=== PATIENT | female | born 1990 ===

== ENCOUNTER 2019-05-08 20:58 | Emergency (ER) | payer BC ==
[2019-05-08 21:26] VITALS: BP 132/70
[2019-05-08] MEDS ORDERED: Nitrofurantoin Macrocrystals* 50 MG CAP PO ONE (21:51)
--- NOTE | 2019-05-08 21:53 | UC ---
Complaint Female HPI - HPI Summary HPI Summary: 28-year-old woman comes in with a chief complaint of dysuria for the last couple of days. She feels like she has to urinate more. Presley when she urinates. Denies any abdominal pain or flank pain no fevers or chills. Feels well otherwise. Denies any abnormal vaginal discharge or any concern of STI or . - History Of Current Complaint Chief Complaint: UCGU Stated Complaint: UTI Time Seen by Provider: 05/08/19 21:15 Hx Last Menstrual Period: 2 WEEKS AGO Pain Intensity: 3 - Allergies/Home Medications Allergies/Adverse Reactions: Allergies Allergy/AdvReac Type Severity Reaction Status Date / Time cephalexin Allergy MIGRAINE Verified 05/08/19 21:27 doxycycline Allergy FACIAL Verified 05/08/19 21:27 SWELLING, RASH Home Medications: Home Medications Ibuprofen TAB* [Advil TAB*] 200 mg PO ONCE PRN 05/08/19 [History Confirmed 05/08] Iud* 05/08/19 [History] PMH/Surg Hx/FS Hx/Imm Hx Previously Healthy: Yes - Surgical History Surgical History: Yes Surgery Procedure, Year, and Place: 2 KNEE SURGERIES (ACL REPAIR) - Family History Known Family History: Positive: Non-Contributory - Social History Alcohol Use: Occasionally Substance Use Type: None Smoking Status (MU): Never Smoked Tobacco Review of Systems All Other Systems Reviewed And Are Negative: Yes Constitutional: Positive: Negative Skin: Positive: Negative Eyes: Positive: Negative ENT: Positive: Negative Respiratory: Positive: Negative Cardiovascular: Positive: Negative Gastrointestinal: Positive: Negative Genitourinary: Positive: Dysuria, Frequency, Urgency Motor: Positive: Negative Neurovascular: Positive: Negative Musculoskeletal: Positive: Negative Neurological: Positive: Negative Psychological: Positive: Negative Is Patient Immunocompromised?: No Physical Exam Triage Information Reviewed: Yes Appearance: Well-Appearing, No Pain Distress, Well-Nourished Vital Signs: Initial Vital Signs Temp 98.4 F 05/08/19 21:21 Pulse 66 05/08/19 21:21 Resp 16 05/08/19 21:21 BP 132/70 05/08/19 21:21 Pulse Ox 100 05/08/19 21:21 Vital Signs Reviewed: Yes Eye Exam: Normal Eyes: Positive: Conjunctiva Clear Neck: Positive: Supple Respiratory: Positive: Lungs clear, Normal breath sounds, No respiratory distress Cardiovascular: Positive: RRR Abdomen Description: Positive: Nontender, Soft. Negative: CVA Tenderness (R), CVA Tenderness (L) Bowel Sounds: Positive: Present Musculoskeletal: Positive: Strength Intact, ROM Intact Neurological: Positive: Alert, Muscle Tone Normal Psychological: Positive: Age Appropriate Behavior Skin Exam: Normal Complaint Female Dx - Differential Dx/Diagnosis Provider Diagnosis: UTI (urinary tract infection) Discharge - Sign-Out/Discharge Documenting (check all that apply): Patient Departure All imaging exams completed and their final reports reviewed: No Studies - Discharge Plan Condition: Stable Disposition: HOME Prescriptions: Nitrofurantoin Monohyd/M-Cryst [Macrobid 100 mg Capsule] 100 mg PO BID #12 cap Patient Education Materials: Urinary Tract Infection in Women (ED) Referrals: [facility] [place] [facility]ERR[facility] [Outside] Additional Instructions: FOLLOW UP WITH YOUR DOCTOR IF NOT COMPLETELY IMPROVED. GET RECHECKED SOONER IF YOUR CONDITION WORSENS OR ANY QUESTIONS OR CONCERNS. - Billing Disposition and Condition Condition: STABLE Disposition: Home
--- NOTE | 2019-05-10 19:55 | UC ---
- Progress Note Progress Note: call patient and assure symptoms have resolved---stop antibiotic as no bacterial grow in patient urine culture---if symptoms are persistent assure patient has follow up care planned Course/Dx - Diagnoses Provider Diagnoses: UTI (urinary tract infection) Discharge - Sign-Out/Discharge Documenting (check all that apply): Post-Discharge Follow Up All imaging exams completed and their final reports reviewed: No Studies - Discharge Plan Condition: Stable Disposition: HOME Prescriptions: Nitrofurantoin Monohyd/M-Cryst [Macrobid 100 mg Capsule] 100 mg PO BID #12 cap Patient Education Materials: Urinary Tract Infection in Women (ED) Referrals: [facility] [place] [facility] [Outside] Additional Instructions: FOLLOW UP WITH YOUR DOCTOR IF NOT COMPLETELY IMPROVED. GET RECHECKED SOONER IF YOUR CONDITION WORSENS OR ANY QUESTIONS OR CONCERNS. - Billing Disposition and Condition Condition: STABLE Disposition: Home
== END 2019-05-08 22:09 | disposition home or self-care (01) ==
LOC: UCEAST 20:58
DX: N39.0 Urinary tract infection, site not specified (principal)
CPT/HCPCS: 81002; 87086; 99202; A9270-GY; G0463

== ENCOUNTER 2019-09-05 16:06 | Emergency (ER) | payer BC ==
--- NOTE | 2019-09-05 16:19 | UC ---
Complaint Female HPI - HPI Summary HPI Summary: 28 yo female presents with UTI symptoms. She tells me that for the last 2 days she has had burning with urination and bladder pressure. She states she has a history of UTIs and gets one every 4-6 months. She has not seen Urology. She denies fever, chills, abdominal pain, n/v, flank pain, vaginal discharge or bleeding. States no concern for today - History Of Current Complaint Stated Complaint: UTI Time Seen by Provider: 09/05/19 16:19 Hx Obtained From: Patient Hx Last Menstrual Period: 2 WEEKS AGO Onset/Duration: Sudden Onset Severity Initially: Mild Severity Currently: Mild Pain Intensity: 2 Pain Scale Used: 0-10 Numeric - Allergies/Home Medications Allergies/Adverse Reactions: Allergies Allergy/AdvReac Type Severity Reaction Status Date / Time cephalexin Allergy MIGRAINE Verified 09/05/19 16:14 doxycycline Allergy FACIAL Verified 09/05/19 16:14 SWELLING, RASH PMH/Surg Hx/FS Hx/Imm Hx - Additional Past Medical History Additional PMH: None - Surgical History Surgical History: Yes Surgery Procedure, Year, and Place: 2 KNEE SURGERIES (ACL REPAIR) - Family History Known Family History: Positive: Non-Contributory - Social History Occupation: Employed Full-time Lives: With Family Alcohol Use: Occasionally Substance Use Type: None Smoking Status (MU): Never Smoked Tobacco Review of Systems All Other Systems Reviewed And Are Negative: No Constitutional: Positive: Negative Skin: Positive: Negative Respiratory: Positive: Negative Cardiovascular: Positive: Negative Gastrointestinal: Positive: Negative Genitourinary: Positive: Dysuria Neurological: Positive: Negative Psychological: Positive: Negative Physical Exam - Summary Physical Exam Summary: GENERAL: NAD. WDWN. No pain distress. SKIN: No rashes, sores, lesions, or open wounds. NECK: Supple. Nontender. No lymphadenopathy. CHEST: CTAB. No r/r/w. No accessory muscle use. Breathing comfortably and in no distress. CV: RRR. Pulses intact. Cap refill <2seconds ABDOMEN: Soft. NTTP. No distention or guarding. No CVA tenderness. Bowel sounds present NEURO: Alert. PSYCH: Age appropriate behavior. Triage Information Reviewed: Yes Vital Signs: Vital Signs: Temp Pulse Resp BP Pulse Ox 98.2 F 58 16 121/62 99 09/05/19 16:15 09/05/19 16:15 09/05/19 16:15 09/05/19 16:15 09/05/19 16:15 Laboratory Tests 09/05/19 16:28 POC Urine Color Yellow POC Urine Clarity Clear POC Urine pH 7.0 POC Ur Specif [place] 1.010 POC Urine Protein Negative POC Ur Glucose (UA) Negative POC Urine Ketones Negative POC Urine Blood Negative POC Urine Nitrite Negative POC Urine Bilirubin Negative POC Urine Urobilinogen 0.2 POC U Leukocyte Esteras Trace Vital Signs Reviewed: Yes Complaint Female Dx - Course Course Of Treatment: UA with trace leuks. Given symptoms and hx of UTIs will treat as UTI. Recommend f/u with Urology given reoccurring UTIs. - Differential Dx/Diagnosis Provider Diagnosis: UTI (urinary tract infection) Discharge ED - Sign-Out/Discharge Documenting (check all that apply): Patient Departure All imaging exams completed and their final reports reviewed: No Studies - Discharge Plan Condition: Stable Disposition: HOME Prescriptions: Nitrofurantoin Monohyd/M-Cryst [Macrobid 100 mg Capsule] 100 mg PO BID #10 cap Patient Education Materials: Urinary Tract Infection in Women (ED) Referrals: No Primary Care Phys,NOPCP [Primary Care Provider] - Ede Montaño MD [Medical Doctor] - If Needed Additional Instructions: If you develop a fever, shortness of breath, chest pain, new or worsening symptoms - please call your PCP or go to the ED immediately. I recommend that you call Urology at the number below to schedule an appointment for further evaluation of your reoccurring UTIs - Billing Disposition and Condition Condition: STABLE Disposition: Home
[2019-09-05 16:20] VITALS: BP 121/62
== END 2019-09-05 16:51 | disposition home or self-care (01) ==
LOC: UCEAST 16:06
DX: N39.0 Urinary tract infection, site not specified (principal); Z88.1 Allergy status to other antibiotic agents
CPT/HCPCS: 81003; 87086; 99212; G0463

== ENCOUNTER 2019-12-16 14:35 | Emergency (ER) | payer BC, OTHER ==
--- NOTE | 2019-12-16 15:09 | UC ---
FLU HPI - HPI Summary HPI Summary: patient traveled to [place] and found out today that the person she was visiting tested positive for COVID 19. patient started with tickley cough 2 days ago no SOB, no fever at home. Today has fatigue and headache. has tried no home meds - History of Current Complaint Stated Complaint: SORE THROAT/HEADACHE/COUGH Time Seen by Provider: 12/16/19 15:07 Hx Obtained From: Patient Hx Last Menstrual Period: 2 WEEKS AGO ?: No Onset/Duration: Gradual Onset Severity Currently: None Associated Signs & Symptoms: Positive: Cough, Headache. Negative: Fever, Sore Throat, Vomiting Related Hx: Possible Flu/Infectious Exposure - COVID 19 - Allergy/Home Medications Allergies/Adverse Reactions: Allergies Allergy/AdvReac Type Severity Reaction Status Date / Time cephalexin Allergy Severe MIGRAINE Verified 12/16/19 15:10 doxycycline Allergy Intermediate FACIAL Verified 12/16/19 15:10 SWELLING, RASH BEE/WASP Allergy Severe See Comment Uncoded 12/16/19 15:10 Home Medications: Home Medications Iud* 1 tab PO DAILY 05/08/19 [History] PMH/Surg Hx/FS Hx/Imm Hx Previously Healthy: Yes - Surgical History Surgical History: Yes Surgery Procedure, Year, and Place: 2 LENA KNEE SURGERIES (ACL REPAIR) - 2008 AND 2009 - [place] - - Family History Known Family History: Positive: None, Non-Contributory - Social History Occupation: Employed Full-time Lives: With Family Alcohol Use: Occasionally Substance Use Type: None Smoking Status (MU): Never Smoked Tobacco Review of Systems All Other Systems Reviewed And Are Negative: Yes Constitutional: Positive: Fatigue. Negative: Fever, Chills Skin: Positive: Negative. Negative: Rash ENT: Positive: Sore Throat Respiratory: Positive: Cough. Negative: Shortness Of Breath Cardiovascular: Positive: Negative. Negative: Chest Pain Musculoskeletal: Positive: Negative Neurological/Mental Status: Positive: Headache - mild Psychological: Positive: Negative Is Patient Immunocompromised?: No Physical Exam - Summary Physical Exam Summary: To decrease the risk of transmission of possible COVID 19 this interview was done with telemedicine which does limit the physical examination Triage Information Reviewed: Yes Appearance: Well-Appearing Vital Signs Reviewed: Yes Respiratory: Positive: Lungs clear - as per RN during telemed visit, No respiratory distress Neurological Exam: Normal Neurological: Positive: Alert Psychological Exam: Normal Flu Course/Dx - Course Course Of Treatment: Strep and flu were negative. Patient has had her symptoms for 2 based on patients symptoms and contact with known COVIOD 19 positive person, this could also be COVID 19 virus and therefore a COVID 19 test was obtained. Patient will follow-up with [facility]. If the patient starts to feel worse they agree to report to the emergency department. - Differential Dx/Diagnosis Differential Diagnosis/HQI/PQRI: Bronchitis, Influenza, Upper Respiratory Infection, Other - COVID 19 Provider Diagnosis: Upper respiratory infection Discharge ED - Sign-Out/Discharge Documenting (check all that apply): Patient Departure All imaging exams completed and their final reports reviewed: No Studies - Discharge Plan Condition: Good Disposition: HOME Patient Education Materials: Upper Respiratory Infection (DC) Forms: COVID-19 Tested & Isolation Referrals: Germaine Nguyen MD [Primary Care Provider] - 5 Days (if not better) Additional Instructions: Your Strep and flu tests were negative. Given your symptoms, this could also be COVID 19 virus and therefore a COVID 19 test was obtained. Please follow-up with [facility]. If your symptoms worsen and you start to have difficulty breathing please call the Emergency room to alert them that you will be arriving for evaluation use Tylenol as directed for pain and fever Rest, drink plenty of fluids - Billing Disposition and Condition Condition: GOOD Disposition: Home
[2019-12-16 15:43] VITALS: BP 116/71
[2019-12-16 15:53] LABS: Influenza A Molecular Negative (Negative); Influenza B Molecular Negative (Negative)
== END 2019-12-16 16:14 | disposition home or self-care (01) ==
LOC: UCEAST 14:35
DX: J06.9 Acute upper respiratory infection, unspecified (principal); R53.83 Other fatigue; R51 Headache; Z20.828 Contact with and (suspected) exposure to other viral communicable diseases; Z88.1 Allergy status to other antibiotic agents; Z91.030 Bee allergy status
CPT/HCPCS: 87651; 99211; G0463